=== PATIENT | male | born 1980 | race Caucasian/White ===

== ENCOUNTER 2025-02-14 12:14 | Emergency (ER) | payer BC, MEDICAID ==
[~2025-02-14] VITALS: Ht 167.6 cm; Wt 78.0 kg
[2025-02-14 12:17] VITALS: O2SAT 97
[2025-02-14 12:49] LABS: BASOPHILS % 0.7 % (0.0-2.0); EOSINOPHILS % 1.4 % (0.0-5.0); HEMATOCRIT. 41.3 % (42.0-52.0); HEMOGLOBIN. 14.4 g/dL (14.0-18.0); LYMPHOCYTES % 40.9 % (20.0-50.0); MEAN PLATELET VOLUME 8.7 fl (7.4-10.4); MONOCYTES % 5.0 % (2.0-8.0); NEUTROPHILS % 52.0 % (40.0-76.0); PLATELET 200 x1000/uL (130-400); RED BLOOD CELL COUNT 5.01 mill/uL (4.7-6.1); RED CELL DISTRIBUTION WIDTH 13.4 % (11.6-14.6)
[2025-02-14] MEDS: MORPHINE SULFATE 4 MG/ML INJ (FOR IV/IM USE) IV ONE (12:51)
[2025-02-14] MEDS: ONDANSETRON HCL 4MG/2ML INJ IV ONE (12:52)
[2025-02-14 13:03] LABS: CREATININE 1.0 mg/dL (0.6-1.3); UREA NITROGEN BLOOD 11 mg/dL (9-23)
[2025-02-14 13:05] LABS: ASPARTATE AMINOTRANSFERASE 27 IU/L (<34); BILIRUBIN DIRECT 0.2 mg/dL (<=3.0)
[2025-02-14 13:06] LABS: BILIRUBIN TOTAL 0.6 mg/dL (0.1-1.0); INR 1.0; PROTEIN TOTAL 7.2 g/dL (6.0-8.3)
[2025-02-14] MEDS: SODIUM CHLORIDE 0.9% 1,000 ML IV ONE (14:00)
[2025-02-14] MEDS ORDERED: IBUP-1455 MT (15:15)
[2025-02-14] MEDS ORDERED: LEVO-65 MT (15:15)
[2025-02-14 15:49] VITALS: BP 129/81; PULSE 81; RESP 16; TEMP 36.5; O2SAT 97
[2025-02-14 16:20] LABS: CLARITY URINE CLEAR (CLEAR); COLOR URINE YELLOW (YELLOW); GLUCOSE URINE NEGATIVE (NEGATIVE); KETONES URINE NEGATIVE (NEGATIVE); LEUKOCYTE ESTERASE URINE NEGATIVE (NEGATIVE); NITRITE URINE NEGATIVE (NEGATIVE); OCCULT BLOOD URINE 3+ (NEGATIVE); PH URINE 6.5 (4.5-8.0); PROTEIN URINE NEGATIVE (NEGATIVE); SPECIFIC GRAVITY URINE 1.007 (1.005-1.030); UROBILINOGEN URINE 0.2 E.U./dL (0.2-1.0)
[2025-02-14 16:31] LABS: BACTERIA URINE NONE SEEN; SQUAMOUS EPITHELIAL CELL URINE RARE /lpf (RARE/1+); WBC URINE 0-2 /hpf (0-2)
== END 2025-02-14 16:23 | disposition home or self-care (01) ==
LOC: ER 12:14
DX: N45.1 Epididymitis (principal); E11.9 Type 2 diabetes mellitus without complications; Z79.899 Other long term (current) drug therapy; Z86.73 Personal history of transient ischemic attack (TIA), and cerebral infarction without residual deficits
CPT/HCPCS: 99285; 96374; 93976; 96361; 96375; 80076; 80048; 81003; 85025; 85610; 85730; 86850; 86900; 86901; 36415; 76870; J2405; J2270; J7030

== ENCOUNTER 2025-03-30 12:40 | Emergency (ER) | payer BC, MEDICAID ==
[~2025-03-30] VITALS: Ht 170.2 cm; Wt 76.0 kg
[~2025-03-30 12:40] MED LIST: IBUP-1455 MT; LEVO-65 MT
[2025-03-30 12:59] VITALS: O2SAT 98
[2025-03-30 13:31] LABS: BASOPHILS % 0.9 % (0.0-2.0); EOSINOPHILS % 1.3 % (0.0-5.0); HEMATOCRIT. 40.2 % (42.0-52.0); HEMOGLOBIN. 14.1 g/dL (14.0-18.0); LYMPHOCYTES % 31.8 % (20.0-50.0); MEAN PLATELET VOLUME 8.7 fl (7.4-10.4); MONOCYTES % 5.7 % (2.0-8.0); NEUTROPHILS % 60.3 % (40.0-76.0); PLATELET 223 x1000/uL (130-400); RED BLOOD CELL COUNT 4.86 mill/uL (4.7-6.1); RED CELL DISTRIBUTION WIDTH 13.6 % (11.6-14.6)
[2025-03-30 13:54] LABS: CREATININE 1.1 mg/dL (0.6-1.3); UREA NITROGEN BLOOD 15 mg/dL (9-23)
[2025-03-30 15:01] LABS: CLARITY URINE CLEAR (CLEAR); COLOR URINE YELLOW (YELLOW); GLUCOSE URINE NEGATIVE (NEGATIVE); KETONES URINE NEGATIVE (NEGATIVE); LEUKOCYTE ESTERASE URINE NEGATIVE (NEGATIVE); NITRITE URINE NEGATIVE (NEGATIVE); OCCULT BLOOD URINE NEGATIVE (NEGATIVE); PH URINE 6.5 (4.5-8.0); PROTEIN URINE NEGATIVE (NEGATIVE); SPECIFIC GRAVITY URINE 1.009 (1.005-1.030); UROBILINOGEN URINE 0.2 E.U./dL (0.2-1.0)
[2025-03-30 15:15] LABS: ASPARTATE AMINOTRANSFERASE 21 IU/L (<34); BILIRUBIN DIRECT < 0.1 mg/dL (<=3.0); BILIRUBIN TOTAL 0.4 mg/dL (0.1-1.0); PROTEIN TOTAL 7.2 g/dL (6.0-8.3)
[2025-03-30] MEDS ORDERED: TAMS-54 MT (16:26)
[2025-03-30] MEDS ORDERED: IBUP-2030 MT (16:26)
[2025-03-30 16:45] VITALS: BP 122/80; PULSE 82; RESP 15; TEMP 37.1; O2SAT 98
== END 2025-03-30 16:48 | disposition home or self-care (01) ==
LOC: ER 12:40
DX: N20.0 Calculus of kidney (principal); N50.3 Cyst of epididymis; E11.9 Type 2 diabetes mellitus without complications; K52.9 Noninfective gastroenteritis and colitis, unspecified; K57.32 Diverticulitis of large intestine without perforation or abscess without bleeding
CPT/HCPCS: 36415; 74176; 76770; 76870; 80048; 80076; 81003; 85025; 93976; 99284